=== PATIENT | male | born 1950 | race Caucasian/White ===

== ENCOUNTER 2017-10-21 18:28 | Inpatient (IN) | payer OTHER ==
[~2017-10-21] VITALS: Ht 188 cm; Wt 103.2 kg
--- NOTE | 2017-10-21 18:57 | ED AMS/SEIZURE/WEAK/DIZZY ---
History of Present Illness General Chief Complaint: Fever Stated Complaint: FEVER, CONFUSION, SEEN HERE 10/19 FOR SAME Source: patient, family, old records Exam Limitations: no limitations Vital Signs & Intake/Output Vital Signs & Intake/Output Vital Signs Date Time Temp Pulse Resp B/P B/P Pulse O2 O2 Flow FiO2 Mean Ox Delivery Rate 10/21 2112 98.7 90 18 115/79 93 Room Air 10/21 1957 98.9 93 18 114/56 94 Room Air 10/22 1947 Room Air 10/22 1831 102.7 113 15 139/68 93 Room Air Room Air Allergies Coded Allergies: No Known Allergies (10/21/17) Reconcile Medications Allopurinol 300 MG TABLET 1 TAB PO DAILY GOUT (Reported) Amitriptyline HCl 50 MG TABLET 1 TAB PO QHS SLEEP (Reported) Atenolol 100 MG TABLET 1 TAB PO DAILY BP (Reported) Hydroxychloroquine Sulfate 200 MG TABLET 1 TAB PO BID RA (Reported) Prednisone 5 MG TABLET 1 TAB PO BID RA (Reported) Sildenafil Citrate (Viagra) 100 MG TABLET 1 TAB PO PRN ED (Reported) 1 hour before sexual activity Triage Note: PT TO ED FOR C/C OF SUDDEN ONSET OF FEVER TODAY WITH CONFUSION. PT SEEN AND EVALUATED FOR SAME ON THURSDAY. PER , PT STARTED WITH FEVERS AGAIN AT HOME TODAY AROUND THE AFTERNOON. PT A/O X 3 BUT THINKS IT'S NOVEMBER. TEMP 102.7 IN TRIAGE. PT'S MEDICATED WITH "2 MOTRIN AND 2 TYLENOL AROUND 5:30 JUST BEFORE WE CAME." TAKEN TO ROOM 17 FOR EVAL. Triage Nurses Notes Reviewed? yes Onset: Abrupt Duration: day(s): (1), constant Timing: recent history Injury Environment: home Severity: moderate, severe Severity Numbers: 8 No Modifying Factors: none Associated Symptoms: denies HPI: 66-year-old male history of hypertension renal cancer status post nephrectomy presents the ER for evaluation after he redeveloped fevers at home today. He was seen in this ER for the same 2 days ago associated with altered mental status when he was found in the driveway with a thermometer in his mouth. He had an unremarkable workup performed and was sent home. He was doing well area and his states that she came home today and the patient was asleep in the chair when she woke him up he states he didn't do anything today however she knows that he went to the Social Security office today. She also states that he said it was November. On arrival in my evaluation he is alert and oriented 3 no recent head trauma he took Tylenol Motrin prior to arrival. There's been no cough. No abdominal pain shortness of breath sore throat no rhinorrhea sick contacts urinary complaints No recent tick or insect bite that is known (Ulises Dunlap) Past History Travel History Traveled to [place] past 21 day No Medical History Any Pertinent Medical History? see below for history Cardiovascular: hypertension Musculoskeletal: rheumatoid arthritis Cancer(s): RENAL CANCER Surgical History Surgical History: nephrectomy Psychosocial History What is your primary language Bengali Tobacco Use: Never used ETOH Use: occasional use Illicit Drug Use: denies illicit drug use Family History Hx Contributory? No (Ulises Dunlap) Review of Systems Review of Systems Constitutional: Reports: see HPI, chills, fever. Comments Review of systems: See HPI, All other systems negative. Constitutional, chills fever, no malaise no weight loss HEENT: no sore throat no congestion, no ear pain Cardiovascular: No chest pain , no palpitation Skin: no rashes, no change in skin Respiratory: No dyspnea no cough no sputum no hemoptysis GI: No nausea no vomiting, no diarrhea, no bloating/constipation : No dysuria No hematuria, no frequency Muscle skeletal: No joint pain, no back pain, no neck pain, Neurologic: , no headache Heme/endocrine: No bruising Immunology: No lymphadenopathy (Ulises Dunlap) Physical Exam Physical Exam General Appearance: well developed/nourished, no apparent distress, alert, awake , comfortable Comments: Well-developed well-nourished person in no acute distress HEENT: Normal EENT exam; PERRL, EOMI, HEAD is atraumatic. moist mucous membranes. Neck: Supple, no lymphadenopathy, normal range of motion without pain or tenderness Back: Nontender, no CVA tenderness. Full range of motion Cardiovascular: Regular rate and rhythms no murmurs rubs or gallops, normal JVP Respiratory: Chest nontender.There were no bony deformities, no asymmetry. No respiratory distress. Patient speaking in full complete sentences. Breath sounds clear to auscultation bilaterally: NO W/R/R Abdomen: Soft, nontender nondistended, no appreciable organomegaly. Normal bowel sounds. No rebound/guarding, No appreciable enlargement of the abdominal aorta, No ascites. Extremity: No edema, full range of motion of extremities, normal and equal pulses bilaterally, 5 out of 5 strength noted to bilateral upper and lower extremities Neuro: Alert oriented x3, motor sensory normal, cranial nerves II through XII grossly intact. There were no obvious focal neurologic abnormalities. Skin: No appreciable rash on exposed skin, skin is warm and dry. Psych: Mood and affect is normal, memory and judgment is normal. Core Measures ACS in differential dx? Yes CVA/TIA Diagnosis No Sepsis Present: No Sepsis Focused Exam Completed? No (Bladimir SCALES,Ulises) Progress Differential Diagnosis: arrythmia, anemia, benign positional vertigo, dehydration, encephalitis, GI bleed, hypoglycemia, pneumonia, UTI/pyelo, tick born illness Plan of Care: Orders Procedure Date/time Status Regular Diet 10/22 B Active CBC WITHOUT DIFFERENTIAL 10/22 06 Active BASIC ELECTROLYTES PLUS BUN&CR 10/22 599 Active Pathway - chart 10/21 2205 Active House Staff 10/21 2205 Active SPECIMEN TO BE OBTAINED 10/21 2205 Active STREP PNEUMO URINARY ANTIGEN 10/21 2205 Active LEGIONELLA URINARY ANTIGEN 10/21 2205 Active URINALYSIS 10/21 2205 Active Code Status 10/21 2205 Active Patient Data 10/22 2043 Active EKG 10/22 2031 Active OXYGEN SETUP (GEN) 10/22 2003 Active Saline Lock 10/22 2003 Active Admit to inpatient 10/22 2003 Active Vital Signs 10/22 2003 Active Activity/Ambulation 10/22 2003 Active Code Status 10/22 2003 Complete Intake & Output 10/21 1947 Active LACTIC ACID 10/21 1914 Complete BLOOD CULTURE 10/21 1850 Active LYME TITRE 10/21 1850 Active TROPONIN LEVEL 10/21 184 Complete COMPREHENSIVE METABOLIC PANEL 10/21 184 Complete CBC WITHOUT DIFFERENTIAL 10/21 1848 Complete Lab Add-on Test 10/21 UNK Active VTE Mechanical Prophylaxis 10/21 UNK Active Vital Signs 10/21 UNK Active Intake & Output 10/21 UNK Active Current Medications Sig/Keri Start time Last Medication Dose Stop Time Status Admin Amitriptyline HCl 50 MG QPM 10/22 2100 AC (Elavil 50 MG Tablet) Prednisone 5 MG BID 10/22 0900 AC Heparin Sodium 5,000 UNIT Q8 10/22 0600 AC (Porcine) Acetaminophen 650 MG Q8P PRN 10/21 2214 AC (Tylenol) Sodium Chloride 1,000 ML .Q10H 10/21 2214 AC (Normal Saline 0.9%) Laboratory Tests 10/21/172213: Lactic Acid Cancelled 10/21/172148: Lactic Acid Cancelled 10/21/171936: Lactic Acid 1.5 10/21/171851: Anion Gap 13, Estimated GFR > 60, BUN/Creatinine Ratio 16.0, Glucose 125 H, Calcium 8.5, Total Bilirubin 0.4, AST 32, ALT 47, Alkaline Phosphatase 47, Troponin I < 0.01, Total Protein 5.6 L, Albumin 3.5, Globulin 2.1, Albumin/ Globulin Ratio 1.7, Lyme Disease Antibody Pending 10/21/171850: CBC w Diff MAN DIFF ORDERED, RBC 4.86, MCV 84.5, MCH 29.4, MCHC 34.8, RDW 15.9 H, MPV 7.6, Gran % 84.0 H, Lymphocytes % 11.0 L, Monocytes % 4.9, Eosinophils % 0, Basophils % 0.1, Absolute Granulocytes 4.3, Segmented Neutrophils 71, Band Neutrophils 14 H, Absolute Lymphocytes 0.6 L, Lymphocytes 11 L, Monocytes 4, Absolute Monocytes 0.2, Absolute Eosinophils 0, Absolute Basophils 0, Platelet Estimate ADEQUATE, Normocytic RBCs VERIFIED, Normochromic RBCs VERIFIED Microbiology 10/21 2205 URINE ROUT: Legionella Antigen - ORD 10/21 2205 URINE ROUT: Streptococcus pneumoniae Antigen (M - ORD 10/21 1950 BLOOD: Blood Culture - RECD 10/21 1936 BLOOD: Blood Culture - RECD Old records from 2 days ago including a patient CAT scan of the head chest x- ray urinalysis blood cultures and labs were reviewed patient is alert oriented 3 he just took Tylenol Motrin prior to arrival IV fluids ordered CAT scans ordered. Case discussed with Dr. Arreaga agrees with plan Diagnostic Imaging: Viewed by Me: CT Scan. Discussed w/RAD: CT Scan. Initial ED EKG: normal intervals, normal p-waves, normal QRS complex, normal sinus rhythm (Ulises Dunlap) Departure Departure Time of Disposition: 2040 Disposition: STILL A PATIENT Condition: Stable Clinical Impression Primary Impression: Pneumonia Referrals: Awad Krystian YOUNG (PCP/Family) Departure Forms: Customer Survey General Discharge Information Admission Note Spoke With: Marcel Howard MD Documentation of Exam: Documentation of any treatments & extenuating circumstances including Concerns Regarding Discharge (functional status, medication knowledge or non-compliance, living conditions, etc.) that warrant an admission rather than observation: [IV antibiotics trend labs cultures premature discharge medically harmful ] (Bladimir SCALES,Ulises) PA/HEALTH INFORMATICS SPECIALIST Co-Sign Statement Statement: ED Attending supervision documentation- x I saw and evaluated the patient. I have also reviewed all the pertinent lab results and diagnostic results. I agree with the findings and the plan of care as documented in the PA's/HEALTH INFORMATICS SPECIALIST's documentation. Fever, confusion with pneumonia on CT chest, PMHx renal cell ca [] I have reviewed the ED Record and agree with the PA's/HEALTH INFORMATICS SPECIALIST's documentation. [] Additions or exceptions (if any) to the PAs/HEALTH INFORMATICS SPECIALIST's note and plan are summarized below: [] (Jace YOUNG,Frank)
[2017-10-21 19:39] LABS: ABSOLUTE BASOPHIL COUNT 0 /CUMM (0.0-0.2); ABSOLUTE EOSINOPHIL COUNT 0 /CUMM (0.0-0.7); ABSOLUTE GRANULOCYTE CT 4.3 /CUMM (1.4-6.5); ABSOLUTE LYMPH COUNT 0.6 /CUMM (1.2-3.4); ABSOLUTE MONOCYTE COUNT 0.2 /CUMM (0.10-0.60); BASOPHIL % 0.1 % (0.0-2.0); EOSINOPHIL % 0 % (0-5); MEAN CORPUSCULAR HGB 29.4 PG (27.0-31.0); MEAN CORPUSCULAR HGB CONC 34.8 G/DL (33.0-37.0); MEAN CORPUSCULAR VOLUME 84.5 FL (80.0-94.0); MEAN PLATELET VOLUME 7.6 FL (7.4-10.4); PLATELET COUNT 136 /CUMM (130-400); RBC DISTRIBUTION WIDTH 15.9 % (11.5-14.5); RED BLOOD CELL CT 4.86 /CUMM (4.70-6.10); WHITE BLOOD CELL COUNT 5.1 /CUMM (4.8-10.8)
--- NOTE | 2017-10-21 20:00 | CT SCAN REPORT ---
EXAMINATION: CT SCAN OF THE CHEST WITHOUT CONTRAST CT ABDOMEN AND PELVIS WITHOUT CONTRAST CLINICAL INFORMATION: Fever altered mental status. Assess for pneumonia pathology. COMPARISON: Chest x-ray 10/19/2017. CT scan of the abdomen and pelvis 10/24/2009. TECHNIQUE: Multidetector volumetric imaging was performed from the superior aspect of the liver through the pubic symphysis. Sagittal and coronal reformatted images were obtained on the technologist's workstation. DLP: 763.79 mGy-cm FINDINGS: CHEST: LUNGS: The lung marina are well-expanded bilaterally. There is a small area tree-in-bud opacities laterally in the right upper lobe. There are calcifications in the right upper lobe laterally measuring 0.8 and 0.3 cm (image [id number]), consistent with granulomata. There is a 0.4 cm subpleural nodule in the posterior right upper lobe laterally (image [id number]). There are multiple punctate small calcifications in the right middle and lower lobes consistent with granulomata. There are moderate areas of atelectasis at the bases bilaterally. There may be a small amount of consolidation at the left base. MEDIASTINUM: There are extensive calcifications in the paratracheal and precarinal regions as well as in the right hilum and right infrahilar regions, consistent with calcified lymph nodes. The heart is normal in size. There is no pericardial effusion. The airways are patent. The thyroid gland appears normal. There are atheromatous calcifications of the aorta. PERICARDIUM/PLEURA: There is no significant effusion. No pleural calcifications, masses or thickening. CHEST WALL/AXILLA: There are reason centered axillary lymph nodes bilaterally. There are no chest wall masses. ABDOMEN/PELVIS: LIVER, GALLBLADDER, BILIARY TREE: The liver is normal in size, shape, and attenuation. No focal hepatic lesion or biliary ductal dilatation is present. The gallbladder is unremarkable with no evidence of radiopaque gallstones, gallbladder wall thickening, or pericholecystic inflammatory changes. PANCREAS: Unremarkable. SPLEEN: The spleen is slightly prominent. There are multiple calcifications within the spleen, consistent with granulomata. ADRENAL GLANDS: The adrenal glands are not enlarged. KIDNEYS AND URETERS: There has been a left nephrectomy. This was demonstrated on the prior study. No renal bed masses are demonstrated. The right kidney is slightly prominent measuring 12 cm craniocaudally. It has normal contour. There is no hydronephrosis or hydroureter. There is a nonobstructive 2 mm calculus toward the lower pole. There is no perinephric stranding. BLADDER: The urinary bladder is partially distended. GASTROINTESTINAL TRACT: The stomach and small bowel loops are unremarkable. The appendix is normal. There is moderate stool within the large bowel. There is no evidence of obstruction or inflammation. ABDOMINAL WALL: There is atrophy of the left rectus abdominis muscle,. There are no large inguinal or umbilical hernias. LYMPH NODES: There is no abdominal pelvic lymphadenopathy. There are small retroperitoneal lymph nodes. VASCULAR: There are atheromatous calcifications of the aorta and its branches. There is a 3.6 cm aneurysm of the infrarenal abdominal aorta just proximal to its bifurcation. PELVIC VISCERA: The prostate gland is not enlarged. No free fluid is seen in the pelvis. OSSEOUS STRUCTURES: There is a grade 1 anterolisthesis of L5 on S1 secondary to bilateral L5 partes interarticulares defects. There are spondylitic changes in the thoracic spine. There are degenerative changes in the bilateral sacroiliac joints. There are no acute osseous findings. There are bone islands in the left iliac bone. There are no suspicious lytic foci. IMPRESSION: 1. There is bibasilar atelectasis, with possible consolidation at the left base. There is a small area of tree in bud opacification in the right upper lobe. There are multiple calcified granulomata in the right lung. 2. There are calcifications in the mediastinum and right hilum, as well as within the spleen, consistent with multiple granulomata. 3. The patient is status post left nephrectomy. No masses are demonstrated and there is no lymphadenopathy. There is a nonobstructive right renal calculus. 4. There is a 3.6 cm infrarenal abdominal aortic aneurysm.
--- NOTE | 2017-10-21 20:55 | History & Physical ---
Kirstin Godinez 10/21/172046: General Information and HPI MD Statement: I have seen and personally examined CORNELIUS HEDRICK and documented this H&P. The patient is a 66 year old M who presented with a patient stated chief complaint of 0[FEVER]. Source of Information: patient, old records Exam Limitations: no limitations History of Present Illness: Mr. Hedrick is a 66yo M w/ PMH of hypertension, renal cancer status post nephrectomy, rheumatoid arthritis, with recent quickly ER visit about 2 days ago , with similar symptoms of confusion starting Thursday, that per , patient forgot to turn off the grill (that he always remembered). However patient went to work on Thursday night and returned Thursday morning, and was texting the saying "he was feeling cold", and the next thing the son found him with the from of the and then called for ambulance for work and he was brought in to the ER with EMS T-max 103. However patient was not being hospitalized. Patient symptoms started around Thursday with some confusion that he forgot to turn off the grill (that he always remember). Thursday morning he was back from work and texted the saying "feeling cold". Next thing son found him bit the themometer and then called ambulance from work and he was BIBA to [facility], with EMS temp 103F, tachycardia, and altered mental status. The patient underwent head CT and was found normal. Patient received 2 L for later, and had car on the mentation was completely normal examination. Patient was then sent home. However, last night he was shivering and resolved in the morning prior to this admission. Today the came back from work and found that the patient was asleep in the chair, and when the woke the patient up, the patient stated that he did not do anything today, however the noted that the patient went to the Social Security office today. Patient also was disoriented to the month of the year and said now was November. Therefore patient's brought the patient in again today with the ER for further evaluation. Patient saw Dr. Hogue 2 weeks ago for follow-up of his rheumatoid arthritis was unremarkable outcomes. Patient had rheumatoid arthritis for 30 years, and always been on hydroxychloroquine, and now any other meds. Patient was doing okay with rheumatoid arthritis with some flareups once in a while. Patient had gout for 10 years and is taking allopurinol and current moment. Patient's last eye check was normal, and will have a follow-up appointment soon. Patient saw Dr. Dick Hickman in 1996 for left neprhonectomy. Never received chemo/radiation. No recent travel except previous service deployments in [facility] and [facility]. During our clinical interaction, patient denied fever/lightheadedness/ diaphoresis/night sweat/weight change/cough/SOB/Chest Pain/Palpitation/Abdominal pain/bowel movement or urinary abnormality, or other skin/musculoskeletal/ neurological/mood disorders, or dietary/appetite change. -Smoking: former smoker of 2-3 cigs/d x 40yrs, quitted 2 yrs ago. -Alcohol: Social -Rec Drugs: Never -Being treated for Lyme disease x 2 yrs ago. Allergies/Medications Allergies: Coded Allergies: No Known Allergies (10/21/17) Home Med list Allopurinol 300 MG TABLET 1 TAB PO DAILY GOUT (Reported) Amitriptyline HCl 50 MG TABLET 1 TAB PO QHS SLEEP (Reported) Atenolol 100 MG TABLET 1 TAB PO DAILY BP (Reported) Hydroxychloroquine Sulfate 200 MG TABLET 1 TAB PO BID RA (Reported) Prednisone 5 MG TABLET 1 TAB PO BID RA (Reported) Sildenafil Citrate (Viagra) 100 MG TABLET 1 TAB PO PRN ED (Reported) 1 hour before sexual activity Past History Travel History Traveled to [place] past 21 day No Medical History Cardiovascular: hypertension Musculoskeletal: rheumatoid arthritis Cancer(s): RENAL CANCER Surgical History Surgical History: nephrectomy Past Family/Social History Psychosocial History ETOH Use: occasional use Illicit Drug Use: denies illicit drug use Review of Systems Review of Systems Constitutional: Reports: see HPI. Exam & Diagnostic Data Last 24 Hrs of Vital Signs/I&O Vital Signs Date Time Temp Pulse Resp B/P B/P Pulse O2 O2 Flow FiO2 Mean Ox Delivery Rate 10/21 1957 98.9 93 18 114/56 94 Room Air 10/22 1947 Room Air 10/22 1831 102.7 113 15 139/68 93 Room Air Room Air Physical Exam General Appearance Alert, Oriented X3, Cooperative, No Acute Distress Skin No Rashes, No Breakdown, No Significant Lesion Skin Temp/Moisture Exam: Warm/Dry Sepsis Skin Exam (color): Normal for Ethnicity HEENT Atraumatic, PERRLA Neck Supple, No JVD Lymphatic Axillary nl, Cervical nl Cardiovascular Regular Rate, Normal S1, Normal S2 Lungs Normal Air Movement, Left lung base with decreased breath sound Abdomen Normal Bowel Sounds, Soft, No Tenderness Neurological Normal Speech, Strength at 5/5 X4 Ext, Sensation Intact Extremities No Edema, Normal Pulses, No Tenderness/Swelling Last 24 Hrs of Labs/Wiliam: Laboratory Tests 10/21/171936: Lactic Acid 1.5 10/21/171851: Anion Gap 13, Estimated GFR > 60, BUN/Creatinine Ratio 16.0, Glucose 125 H, Calcium 8.5, Total Bilirubin 0.4, AST 32, ALT 47, Alkaline Phosphatase 47, Troponin I < 0.01, Total Protein 5.6 L, Albumin 3.5, Globulin 2.1, Albumin/ Globulin Ratio 1.7, Lyme Disease Antibody Pending 10/21/171850: CBC w Diff MAN DIFF ORDERED, RBC 4.86, MCV 84.5, MCH 29.4, MCHC 34.8, RDW 15.9 H, MPV 7.6, Gran % 84.0 H, Lymphocytes % 11.0 L, Monocytes % 4.9, Eosinophils % 0, Basophils % 0.1, Absolute Granulocytes 4.3, Segmented Neutrophils 71, Band Neutrophils 14 H, Absolute Lymphocytes 0.6 L, Lymphocytes 11 L, Monocytes 4, Absolute Monocytes 0.2, Absolute Eosinophils 0, Absolute Basophils 0, Platelet Estimate ADEQUATE, Normocytic RBCs VERIFIED, Normochromic RBCs VERIFIED Microbiology 10/21 1950 BLOOD: Blood Culture - RECD 10/21 1936 BLOOD: Blood Culture - RECD Assessment/Plan Assessment: On admission, Vitals: T-max 102.7 -> 98.9, pulse 93, respirations 18, BP 1 1 4/56, 94% on room air -CBC: No leukocytosis, granulocytes 84%, bandemia -BMP: Unremarkable -Chest CT: 1. There is bibasilar atelectasis, with possible consolidation at the left base. There is a small area of tree in bud opacification in the right upper lobe. There are multiple calcified granulomata in the right lung. 2. There are calcifications in the mediastinum and right hilum, as well as within the spleen, consistent with multiple granulomata. 3. The patient is status post left nephrectomy. No masses are demonstrated and there is no lymphadenopathy. There is a nonobstructive right renal calculus. 4. There is a 3.6 cm infrarenal abdominal aortic aneurysm. -EKG: NSR w/o significant ST-T abnormalities. -Interventions in ER: Ceftriaxone/azithromycin 1 Problem list & Assessment: #Sepsis 2/2 community-acquired pneumonia #Multiple granulomatous lesions on chest CT: DDX including sarcoidosis/ rheumatoid arthritis related lung nodules/other unclear etiologies #Infrarenal AAA #PMH of hypertension, status post nephrectomy, rheumatoid arthritis Hospital Course: - Admit to general medicine floor will hold Droxia chloroquine for now. tachycardia had resolved. nodules per CT findings, and for possible outpatient follow-up. DVT prophylaxis Heparin + ALPS Regular Diet Full Code As Ranked By This Provider Problem List: 1. Pneumonia 2. Fever Core Measures/Misc (02/15) Acute Coronary Syndrome ACS Diagnosis: No Congestive Heart Failure Congestive Heart Failure Diagnosis No Cerebrovascular Accident CVA/TIA Diagnosis: No VTE (View Protocol) VTE Risk Factors Age>40 No Mechanical VTE Prophylaxis d/t N/A MechProphylax Ordered No VTE Pharm Prophylaxis d/t NA PharmProphylax ordered Sepsis (View protocol) Sepsis Present: Yes If YES complete Sepsis Event Note If YES complete Sepsis Event Note Tereza Peter 10/21/172101: Core Measures/Misc (02/15) Sepsis (View protocol) If YES complete Sepsis Event Note If YES complete Sepsis Event Note Resident Review Statement Resident Statement: examined this patient, discussed with software engineer intern, agreed with software engineer intern Other Findings: Mr Hedrick is a 66 -year-old gentleman with a past medical history of hypertension, RCC s/p nephrectomy ([facility] dx'ed 1996), RA(on Hydroxychloroquine+Prednisone), Gout(on Alloprurinol) was brought to the ER with a chief concern of fever, altered mental status x 3 days. Symptoms started 3 days ago, after he did yard work in the a.m, and was found to be slightly altered at the time. Two days ago, he was found to have fever associated with chills and was brought to the ER, and was discharged home after evaluation. He continued to have fever associated w/ chills with recorded temperatures 102-103, and was brought back to the ER for evaluation. He did not have any recollection of events when he was altered. Gives a h/o being drafted when he was young and served in [employer]. No h/o of exposure to asbestos, silica. Smoking h/o of 30 pk h/o quit 2 yrs. no recent foreign travel. No history of exposure to tuberculosis. No dyspnea, palpitations. Reported non productive cough in the last two days. No abdominal pain, dysurea. No pedal edema, no dysurea. He has been following up with Dr. Hogue for the management of rheumatoid arthritis, and has been on hydroxychloroquine (uptodate on eye exams). He was never been treated with any biologicals. Recently started on prednisone daily. He gives a remote h/o of lyme disease and was tx'ed w/ Doxy. Did not receive pnueomovax or prevnar so far. Vitals at the time of admission-temperature 102.7, pulse rate 113, respiration 15, blood pressure 139/68, pulse ox 93% on room air. General Exam: AAOx3, No acute distress, Skin: No rashes, no breakdown;HEENT: PERRLA, EOMI;Neck: Supple, No JVD; No cervical lymphadenopathy;CVS: Reg Rate, Normal S1,S2, No MGR;Resp: Normal air entry, rales + on RLL;Abdomen: Soft, No tenderness, Normal Bowel Sounds;Neuro: Normal Speech, Strength 5/5 b/l x 4 extremities, Sensation intact, CN III-XII NL, Reflexes 2+;Extremities: No cyanosis, no pedal edema, nodules on the PIP joints. No rash, no erythema nodosum. WBC 5.1 (granulocytes 84% with 11 band neutrophils), hemoglobin 14.3, platelets 136. Sodium 137, potassium 3.6, chloride 102, anion gap 13. Renal function-BUN 16, creatinine 1.0, lactic acid 1.5, liver chemistries-AST 32, ALT 47, Lyme disease antibody ordered by ER-pending. Calcium 8.5. Total protein 5.6, albumin 3.5. Chest x-ray 10/19/2017-Linear atelectasis or scarring at the left lung base. Lung hyperinflation. No consolidations. Chest CT 10/21/2017- 1. There is bibasilar atelectasis, with possible consolidation at the left base. There is a small area of tree in bud opacification in the right upper lobe. There are multiple calcified granulomata in the right lung. 2. There are calcifications in the mediastinum and right hilum, as well as within the spleen, consistent with multiple granulomata. 3. The patient is status post left nephrectomy. No masses are demonstrated and there is no lymphadenopathy. There is a nonobstructive right renal calculus. 4. There is a 3.6 cm infrarenal abdominal aortic aneurysm. Problem list- #1 community-acquired pneumonia #2 rheumatoid arthritis #3 multiple granulomatous lesions-lymphatic: mediastinum, right hilum, spleen, likely Sarcoidosis or Loefgrens, sarcoidosis like secondary to renal cell carcinoma. #4 infrarenal abdominal aortic aneurysm #5 hypertension #6 sepsis #7 left shift-granulocytosis. Plan: The patient is admitted to general medicine service for further management of community-acquired pneumonia. Etiology of his pneumonia is likely community- acquired, but being on hydroxychloroquine and prednisone can make him more predisposed to bacteremia ( has not receieved his pneumovax/prevnar ). He also has multiple granulomatous lesions, in the lymphatic system with broad differentials primarily sarcoidosis, renal cell carcinoma induced granulomatous disease ( [facility] Diagn Pathol.~2016;31:62-65 ) rheumatoid arthritis, Loefgrens. - Antibiotics-ceftriaxone and azithromycin for the treatment of community- acquired pneumonia. The patient has hypotension, or continue to have fever despite being on antibiotics, the coverage could be broadened. Continue fluids- normal saline at 100 mL an hour. -Follow his lower respiratory cultures, blood cultures, urine strep+ Legionella. -Hold plaquenil, but Prednisone could be continued. If the pt has hypotension, stress dose of steroids could be considered. -Hold anti-hypertensives at this time. If the BP starts to go up, could be started to avoid any re-bound tachycardia. -Would consider checking JESSICA levels. Consider pulm consult, if he needs to be treated for this granulomatous disease w/ steroids. Would consider checking HIV. -Restart Plaquenil after resolution of pneumonia. Housekeeping: DVT prophylaxis-subcutaneous heparin CODE STATUS-full code Diet-regular diet Tylenol when necessary for fever Medications reconciled. Consults: Pulmonology, if the a.m. team needs it. Lee YOUNG, [facility] 10/21/17 2320: Core Measures/Misc (02/15) Sepsis (View protocol) If YES complete Sepsis Event Note If YES complete Sepsis Event Note Attending MD Review Statement Attending Statement Attending MD Statement: examined this patient, discuss w/resident/PA/SHEET METAL SHOP FOREMAN, agreed w/resident/PA/SHEET METAL SHOP FOREMAN, discussed with family, reviewed images, amended to note Attending Assessment/Plan: 66 yo M with h/o HTN, Renal cell carcinoma s/p left nephrectomy, RA on prednisone and plaquenil, gout, previous Lyme's disease, who was seen in the ER 2 days prior for fever and confusion - after daughter found the patient standing in the driveway confused with a thermometer in his mouth. ER work up was essentially negative and patient was discharged home after his fever defervesced and his mentation was back to baseline. Today, noticed he was asleep in his chair and he reported that he did nothing all day despite the fact that the knew that he had been to [employer] office in the morning hours. He c/o nonproductive cough+. Patient did do some yard work 3 days ago, but no noticeable tick/insect bite or rash. Patient worked for [employer] and has served in [employer]. No h/o of exposure to asbestos, silica. Smoking h/o of 30 pk h/o quit 2 yrs. no recent foreign travel. No history of exposure to tuberculosis. Vitals: Tmax 102.7, HR 90-110's, BP 112/63, sats 93% RA. Exam: AAO, in no distress, Chest left basilar rhonchi+, Heart S1S2 regular, tachycardic. Labs: no leukocytosis, bands 14, glucose 125, lactic acid 1.5, trop negative, LFTs normal. Lyme antibody pending. CT CAP: bibasilar atelectasis with possible consolidation at left lung base. Small area of tree in bud opacification in RUL, multiple calcified granulomata in right lung. Calcifications in mediastinum and right hilum, and spleen multiple granulomata. Renal stones, and infrarenal abdominal aortic aneurysm. CXR: (10/19): linear atelectasis or scarring left lung base. EKG: sinus rhythm, Qtc 426, no acute changes. Assessment and plan: 1. Sepsis (bandemia, fever, tachycardia) 2. Left basilar pneumonia -community acquired pneumonia 3. Multiple calcified granulomata of right lung ?rheumatoid lung ?sarcoid 4. Renal cell carcinoma s/p left nephrectomy 5. Rheumatoid arthritis on prednisone and plaquenil - Admit to General medicine - Panculture, urine legionella/ strep Ag - TRC nebs - IV ceftriaxone and azithro - IV fluids, trend lactic acid - Pulm consult with outpatient follow up - Stress dose steroids if patient becomes hypotensive - Resume prednisone - Hold plaquenil - Add mucinex - Will use broad spectrum antibiotics if patient continues to spike fever - Resume amitriptyline, atenolol and allopurinol in AM DVT ppx Lovenox. Full code.
[2017-10-21] MEDS ORDERED: ATENOLOL100 M1 PO (21:19)
[2017-10-21] MEDS ORDERED: HYDROXYCHLOROQ200 M2 PO (21:19)
[2017-10-21] MEDS ORDERED: ALLOPURINOL300 M1 PO (21:19)
[2017-10-21] MEDS ORDERED: PREDNISONE5 M1 PO (21:20)
[2017-10-21] MEDS ORDERED: AMITRIPTYLINE H50 M2 PO (21:20)
[2017-10-21] MEDS ORDERED: MELOXICAM15 M1 PO (21:20)
[2017-10-21] MEDS ORDERED: VIAGRA100 M1 PO (21:21)
[2017-10-21 22:15] VITALS: BP 112/63
--- NOTE | 2017-10-21 23:20 | Admission Certification ---
Admission Certification Certification Statement - As attending physician, I certify that at the time of - admission, based on clinical presentation, severity of - symptoms, need for further diagnostic testing and - therapeutic interventions, and risk of adverse outcomes - without in-hospital treatment, in my clinical assessment, - this patient requires an acute hospital stay for a minimum - of two nights or longer. I have also considered psychsocial - factors such as support system, advanced age, financial - issues, cognitive issues, and failed out-patient treatments, - past re-admission history, safety of patient, and lack of - compliance as applicable. Specific rationale supporting this admission is: Sepsis, community acquired pneumonia.
[2017-10-22 06:43] VITALS: BP 114/80
[2017-10-22 08:36] LABS: ABSOLUTE BASOPHIL COUNT 0 /CUMM (0.0-0.2); ABSOLUTE EOSINOPHIL COUNT 0 /CUMM (0.0-0.7); ABSOLUTE GRANULOCYTE CT 2.6 /CUMM (1.4-6.5); ABSOLUTE LYMPH COUNT 0.7 /CUMM (1.2-3.4); ABSOLUTE MONOCYTE COUNT 0.3 /CUMM (0.10-0.60); BASOPHIL % 0.2 % (0.0-2.0); EOSINOPHIL % 0.2 % (0-5); GRANULOCYTE % 73.2 % (42.2-75.2); HEMATOCRIT 38.1 % (42-52); MEAN CORPUSCULAR HGB 29.3 PG (27.0-31.0); MEAN CORPUSCULAR HGB CONC 34.8 G/DL (33.0-37.0); MEAN CORPUSCULAR VOLUME 84.1 FL (80.0-94.0); MEAN PLATELET VOLUME 7.8 FL (7.4-10.4); PLATELET COUNT 106 /CUMM (130-400); RBC DISTRIBUTION WIDTH 16.5 % (11.5-14.5); RED BLOOD CELL CT 4.53 /CUMM (4.70-6.10); WHITE BLOOD CELL COUNT 3.5 /CUMM (4.8-10.8)
--- NOTE | 2017-10-22 13:24 | PN- Att Addend ---
Attending Addendum Attending Brief Note Patient seen and examined. Plan of care discussed with the medical team and the patient. Available lab work and radiology test reports were reviewed. Exam: General: Patient awake alert oriented without any distress CVS: S1 plus S2 without any murmur or gallops Chest: Few scattered crepitation without any wheeze. There is no respiratory distress. Abdomen: Soft non-tender, bowel sound present, no guarding or rebound MATERIAL ASSEMBLER: Awake alert oriented without any focal neuro deficit and follows commands appropriately Extremities: No edema; no clubbing or cyanosis noted Problem list & Assessment: * Sepsis 2/2 community-acquired pneumonia * Multiple granulomatous lesions on chest CT: DDX including sarcoidosis/ rheumatoid arthritis related lung nodules/other etiologies fungal infection such as histoplasmosis * Infrarenal AAA * PMH of hypertension, * status post nephrectomy, * rheumatoid arthritis Plan * Continue ceftriaxone and azithromycin * Await cultures reports * Lung nodules can be worked up as outpatient * Out of bed and ambulate * Check and to saturation Current Medications Sig/Keri Start time Last Medication Dose Route Stop Time Status Admin Acetaminophen 650 MG Q8P PRN 10/21 2214 AC 10/22 PO 0754 Amitriptyline HCl 50 MG QPM 10/22 2100 AC PO Atenolol 100 MG DAILY 10/22 0900 AC 10/22 PO 0833 Azithromycin 500 MG 2000 10/23 1999 AC Sodium Chloride 250 ML IV Azithromycin 500 MG ONCE ONE 10/21 2044 DC 10/21 Sodium Chloride 250 ML IV 10/210 Ceftriaxone Sodium 1,000 MG 2000 10/23 1999 AC IV Ceftriaxone Sodium 0 .STK-MED ONE 10/21 2046 DC .ROUTE Ceftriaxone Sodium 1,000 MG ONCE ONE 10/21 2044 DC 10/21 IV 10/21 Heparin Sodium 5,000 UNIT Q8 10/22 06 AC 10/22 (Porcine) SC 0602 Hydroxychloroquine 200 MG BID 10/22 1256 AC Sulfate PO Ketorolac 30 MG ONCE ONE 10/21 Tromethamine IV 10/21 Ketorolac 0 .STK-MED ONE 10/21 2009 DC Tromethamine .ROUTE Prednisone 5 MG BID 10/22 0900 AC 10/22 PO 0832 Sodium Chloride 1,000 ML .Q10H 10/21 2215 AC 10/22 IV 10/22 1814 1019 Sodium Chloride 1,000 ML BOLUS ONE 10/21 190 DC 10/21 IV 10/21 Laboratory Tests 10/22/17 0700: Anion Gap 10, Estimated GFR > 60, BUN/Creatinine Ratio 15.6, CBC w Diff MAN DIFF ORDERED, RBC 4.53 L, MCV 84.1, MCH 29.3, MCHC 34.8, RDW 16.5 H, MPV 7.8, Gran % 73.2, Lymphocytes % 19.2 L, Monocytes % 7.2, Eosinophils % 0.2, Basophils % 0.2, Absolute Granulocytes 2.6, Segmented Neutrophils 44, Band Neutrophils 28 H , Absolute Lymphocytes 0.7 L, Lymphocytes 20 L, Monocytes 7, Absolute Monocytes 0.3, Absolute Eosinophils 0, Basophils 1, Absolute Basophils 0, Platelet Estimate DECREASED, Anisocytosis 1+ 10/22/17 0423: Urine Color YEL, Urine Clarity CLEAR, Urine pH 6.0, Ur Specific [place] >= 1.030 , Urine Protein 30 H, Urine Ketones NEG, Urine Nitrite NEG, Urine Bilirubin NEG , Urine Urobilinogen 0.2, Ur Leukocyte Esterase NEG, Ur Microscopic SEDIMENT EXAMINED, Urine RBC 1-3, Urine WBC RARE, Urine Bacteria FEW H, Urine Hemoglobin NEG, Urine Glucose NEG 10/21/17 2214: Lactic Acid Cancelled 10/21/17 2149: Lactic Acid Cancelled 10/21/17 1937: Lactic Acid 1.5 10/21/171851: Anion Gap 13, Estimated GFR > 60, BUN/Creatinine Ratio 16.0, Glucose 125 H, Calcium 8.5, Total Bilirubin 0.4, AST 32, ALT 47, Alkaline Phosphatase 47, Troponin I < 0.01, Total Protein 5.6 L, Albumin 3.5, Globulin 2.1, Albumin/ Globulin Ratio 1.7, Lyme Disease Antibody 0.11 10/21/17 185: CBC w Diff MAN DIFF ORDERED, RBC 4.86, MCV 84.5, MCH 29.4, MCHC 34.8, RDW 15.9 H, MPV 7.6, Gran % 84.0 H, Lymphocytes % 11.0 L, Monocytes % 4.9, Eosinophils % 0, Basophils % 0.1, Absolute Granulocytes 4.3, Segmented Neutrophils 71, Band Neutrophils 14 H, Absolute Lymphocytes 0.6 L, Lymphocytes 11 L, Monocytes 4, Absolute Monocytes 0.2, Absolute Eosinophils 0, Absolute Basophils 0, Platelet Estimate ADEQUATE, Normocytic RBCs VERIFIED, Normochromic RBCs VERIFIED Microbiology 10/22 422 URINE ROUT: Legionella Antigen - COMP 10/22 422 URINE ROUT: Streptococcus pneumoniae Antigen (M - COMP 10/21 1950 BLOOD: Blood Culture - RECD 10/21 1936 BLOOD: Blood Culture - RECD Vital Signs Date Time Temp Pulse Resp B/P B/P Pulse O2 O2 Flow FiO2 Mean Ox Delivery Rate 10/22 0833 87 159/89 10/22 0754 4.0 10/22 642 98.3 79 20 114/80 96 Room Air 10/21 2214 98.6 84 18 112/63 94 Room Air 10/21 2214 94 Room Air 10/21 2112 98.7 90 18 115/79 93 Room Air 10/21 1957 98.9 93 18 114/56 94 Room Air 10/22 1947 Room Air 10/22 1831 102.7 113 15 139/68 93 Room Air Room Air Intake & Output 10/22 1600 10/22 0800 10/22 0000 Intake Total 1380 1000 Output Total Balance 1380 1000 Intake, IV 900 1000 Intake, Oral 480 0 Number 0 0 Bowel Movements Patient 228 lb Weight Weight Bed scale Measurement Method
[2017-10-22 14:39] VITALS: BP 165/94
--- NOTE | 2017-10-22 14:56 | PN- Housestaff ---
Subjective Follow-up For: confusion fever Subjective: Patient is alert and oriented 3 today. He notes that he has a headache, frontal. He has stable vitals. The patient denies any chest pain or shortness of breath. He denies cough. He denies any nausea or vomiting but does have fever and chills. The patient was noted to get up from his bed many times during the day, confused. Patient's , who is here most of the day, stated that this is not normal for her . Review of Systems Constitutional: Reports: chills, fever. EENTM: Reports: no symptoms. Cardiovascular: Reports: no symptoms. Respiratory: Reports: no symptoms. Gastrointestinal: Reports: no symptoms. Genitourinary: Reports: no symptoms. Musculoskeletal: Reports: no symptoms. Skin: Reports: no symptoms. Neurological/Psychological: Reports: confusion, headache. Hematologic/Endocrine: Reports: no symptoms. Objective Last 24 Hrs of Vital Signs/I&O Vital Signs Date Time Temp Pulse Resp B/P B/P Pulse O2 O2 Flow FiO2 Mean Ox Delivery Rate 10/22 1439 98.3 107 20 165/94 92 Room Air 10/22 1436 100.2 10/22 0853 0.0 10/22 0833 87 159/89 10/22 0754 4.0 10/22 0643 98.3 79 20 114/80 96 Room Air 10/21 2214 98.6 84 18 112/63 94 Room Air 10/21 2215 94 Room Air 10/21 2113 98.7 90 18 115/79 93 Room Air 10/21 1958 98.9 93 18 114/56 94 Room Air 10/21 1948 Room Air 10/21 1832 102.7 113 15 139/68 93 Room Air Room Air Intake & Output 10/22 1600 10/22 0800 10/22 0000 Intake Total 1300 1380 1000 Output Total Balance 1300 1380 1000 Intake, IV 177 820 0811 Intake, Oral 500 480 0 Number 0 0 Bowel Movements Patient 228 lb Weight Weight Bed scale Measurement Method Physical Exam General Appearance: Alert, Oriented X3, Cooperative, No Acute Distress, waxing and waning confusion, on interview this morning, was Aox3 Skin: No Rashes, No Breakdown, No Significant Lesion Skin Temp/Moisture Exam: Warm/Dry Sepsis Skin Exam (color): Normal for Ethnicity HEENT: Atraumatic, PERRLA, EOMI, Mucous Membr. moist/pink Cardiovascular: Regular Rate, Normal S1, Normal S2, No Murmurs Lungs: crackles at bilateral bases Abdomen: Normal Bowel Sounds, Soft, No Tenderness Neurological: Normal Gait, Normal Speech, Strength at 5/5 X4 Ext, Normal Tone, Sensation Intact, Cranial Nerves 3-12 NL Extremities: No Clubbing, No Cyanosis, No Edema, Normal Pulses, No Tenderness/ Swelling Vascular: Normal Pulses, Pulses Symmetrical Current Medications: Current Medications Sig/Keri Start time Last Medication Dose Route Stop Time Status Admin Acetaminophen 650 MG .STK-MED ONE 10/22 0753 DC PO 10/22 0754 Acetaminophen 650 MG Q8P PRN 10/21 2215 AC 10/22 PO 1436 Amitriptyline HCl 50 MG QPM 10/22 2100 AC PO Atenolol 100 MG DAILY 10/22 0900 AC 10/22 PO 0833 Azithromycin 500 MG 10/22 CAN Sodium Chloride 250 ML IV Azithromycin 500 MG ONCE ONE 10/21 2044 DC 10/21 Sodium Chloride 250 ML IV 10/21 Ceftriaxone Sodium 1,000 MG 2000 10/23 1999 CAN IV Ceftriaxone Sodium 0 .STK-MED ONE 10/21 2046 DC .ROUTE Ceftriaxone Sodium 1,000 MG ONCE ONE 10/21 2044 DC 10/21 IV 10/21 Doxycycline Hyclate 100 MG BID 10/22 2100 DC PO Doxycycline Hyclate 100 MG BID 10/22 1645 AC PO Heparin Sodium 5,000 UNIT Q8 10/22 0600 AC 10/22 (Porcine) SC 1436 Hydroxychloroquine 200 MG BID 10/22 1256 AC 10/22 Sulfate PO 1651 Ketorolac 30 MG ONCE ONE 10/21 2014 DC 10/21 Tromethamine IV 10/21 Ketorolac 0 .STK-MED ONE 10/21 2009 DC Tromethamine .ROUTE Patient Medication 1 ED ONE ONE 10/22 1545 DC Teaching ED 10/22 1546 Prednisone 5 MG BID 10/22 0900 AC 10/22 PO 0832 Sodium Chloride 1,000 ML .Q10H 10/21 2215 AC 10/22 IV 10/22 1814 1019 Sodium Chloride 1,000 ML BOLUS ONE 10/21 1900 DC 10/21 IV 10/21 1959 1945 Last 24 Hrs of Lab/Wiliam Results Last 24 Hrs of Labs/Mics: Laboratory Tests 10/22/17 0700: Anion Gap 10, Estimated GFR > 60, BUN/Creatinine Ratio 15.6, CBC w Diff MAN DIFF ORDERED, RBC 4.53 L, MCV 84.1, MCH 29.3, MCHC 34.8, RDW 16.5 H, MPV 7.8, Gran % 73.2, Lymphocytes % 19.2 L, Monocytes % 7.2, Eosinophils % 0.2, Basophils % 0.2, Absolute Granulocytes 2.6, Segmented Neutrophils 44, Band Neutrophils 28 H , Absolute Lymphocytes 0.7 L, Lymphocytes 20 L, Monocytes 7, Absolute Monocytes 0.3, Absolute Eosinophils 0, Basophils 1, Absolute Basophils 0, Platelet Estimate DECREASED, Anisocytosis 1+ 10/22/17 0423: Urine Color YEL, Urine Clarity CLEAR, Urine pH 6.0, Ur Specific [place] >= 1.030 , Urine Protein 30 H, Urine Ketones NEG, Urine Nitrite NEG, Urine Bilirubin NEG , Urine Urobilinogen 0.2, Ur Leukocyte Esterase NEG, Ur Microscopic SEDIMENT EXAMINED, Urine RBC 1-3, Urine WBC RARE, Urine Bacteria FEW H, Urine Hemoglobin NEG, Urine Glucose NEG 10/21/17 2214: Lactic Acid Cancelled 10/21/17 2149: Lactic Acid Cancelled 10/21/17 1937: Lactic Acid 1.5 10/21/17 1852: Anion Gap 13, Estimated GFR > 60, BUN/Creatinine Ratio 16.0, Glucose 125 H, Calcium 8.5, Total Bilirubin 0.4, AST 32, ALT 47, Alkaline Phosphatase 47, Troponin I < 0.01, Total Protein 5.6 L, Albumin 3.5, Globulin 2.1, Albumin/ Globulin Ratio 1.7, Lyme Disease Antibody 0.11 10/21/17 1851: CBC w Diff MAN DIFF ORDERED, RBC 4.86, MCV 84.5, MCH 29.4, MCHC 34.8, RDW 15.9 H, MPV 7.6, Gran % 84.0 H, Lymphocytes % 11.0 L, Monocytes % 4.9, Eosinophils % 0, Basophils % 0.1, Absolute Granulocytes 4.3, Segmented Neutrophils 71, Band Neutrophils 14 H, Absolute Lymphocytes 0.6 L, Lymphocytes 11 L, Monocytes 4, Absolute Monocytes 0.2, Absolute Eosinophils 0, Absolute Basophils 0, Platelet Estimate ADEQUATE, Normocytic RBCs VERIFIED, Normochromic RBCs VERIFIED Microbiology 10/22 422 URINE ROUT: Legionella Antigen - COMP 10/22 422 URINE ROUT: Streptococcus pneumoniae Antigen (M - COMP 10/21 1950 BLOOD: Blood Culture - RES 10/21 1936 BLOOD: Blood Culture - RES Assessment/Plan Assessment: Mr. Ornelas is a 66yo M w/ PMH of hypertension, renal cancer status post nephrectomy without chemotherapy/radiation, rheumatoid arthritis on prednisone and hydroxychloroquine, gout on allopurinol, that presented to the ER with confusion that began 5 days ago. He states that at the time it began, he was "very tired after doing yard work". Three days ago, the patient was BIBA to the ED for the same complaints, found to have fever to 103.5, tachycardia, and altered mental status. The patient underwent head CT and was found normal. Patient received 2 L fluids, found to have normal physical exam, and was sent home. The patient's stated that he never really got better and his confusion has increased since he was discharged from the ED. During this hospitalization, the patient is waxing and waning clear mentation. On interview today he was alert and oriented 3. She does have rheumatoid arthritis but his only symptom is joint pain and has been so for the entire time he has had the disease. He shouldn't does have a history of Lyme disease 2 years ago, treated successfully. On admission, Vitals: T-max 102.7 -> 98.9, pulse 93, respirations 18, BP 1 1 4/56, 94% on room air -CBC: No leukocytosis, granulocytes 84%, bandemia -BMP: Unremarkable -Chest CT: 1. There is bibasilar atelectasis, with possible consolidation at the left base. There is a small area of tree in bud opacification in the right upper lobe. There are multiple calcified granulomata in the right lung. 2. There are calcifications in the mediastinum and right hilum, as well as within the spleen, consistent with multiple granulomata. 3. The patient is status post left nephrectomy. No masses are demonstrated and there is no lymphadenopathy. There is a nonobstructive right renal calculus. 4. There is a 3.6 cm infrarenal abdominal aortic aneurysm. -EKG: NSR w/o significant ST-T abnormalities. -Interventions in ER: Ceftriaxone/azithromycin 1 Problem list & Assessment: #Sepsis 2/2 presumed community-acquired pneumonia. Patient meets criteria for sepsis. Continues to have waxing and waning confusion during the day. Appears to have defervesced earlier today and overnight. #Multiple granulomatous lesions on chest CT: DDX including sarcoidosis/ rheumatoid arthritis related lung nodules/other unclear etiologies. The patient notes no travel out of the [place] except to the [place] back 30 years ago. He has worked in [employer] for many years and does note that he could've had chemical exposure at work. He denies any weight loss. The patient has a remote history of smoking on and off for 20 years but quit about 20 years ago. #Infrarenal AAA #PMH of hypertension, status post nephrectomy, rheumatoid arthritis Plan noted to be tachypneic with a respiratory rate of 32, most likely secondary to his infection. the lab reported several neutrophils containing cytoplasmic structures, suggestive of Anaplasma, on his peripheral smear. We have switched ceftriaxone and azithromycin for doxycycline 100 mg twice a day and has put in anaplasma PCR. hydroxychloroquine 200 mg twice a day as this does not have an effect on the lung. tachycardia had resolved. , outpatient about his lung nodules for possible PFT and further workup. Of note, Dr. Hogue who follows him for rheumatoid arthritis had never seen these nodules, no workup done. -Lyme test negative. Patient did have history of Lyme in the past. DVT prophylaxis Heparin + ALPS Regular Diet Full Code Problem List: 1. Fever 2. Pneumonia Pain Ratin Pain Location: na Pain Goal: Remain pain free Pain Plan: prn Tomorrow's Labs & Rationales: bep cbc
--- NOTE | 2017-10-22 16:02 | Cons- Infect Disease ---
General Information and HPI Consulting Request Date of Consult: 10/22/17 Requested By: Lee YOUNG,Marcel Reason for Consult: Fever/intracellular morulae Source of Information: patient, family, old records History of Present Illness: This is a 66-year-old man with a history of hypertension, renal cancer, status post left nephrectomy, rheumatoid arthritis, maintained on prednisone and Plaquenil, and Lyme disease, seen in the emergency room 2 days prior to admission with fever and confusion, found to be febrile to 102.9, with a white blood cell count of 8000, a platelet count of 251,000, normal chemistries, a negative urinalysis, negative CT of the head and a chest x-ray negative for pneumonia, given a dose of Ceftriaxone and discharged on no antibiotics, admitted on October 21 after he was brought back to the emergency room because of recurrent fever and confusion. On admission he was febrile to 102.7. Laboratory data revealed a white blood cell count of 5000, with 71 segs and 14 bands, H&H 14 and 41, platelet count 136,000, BUN/creatinine 16 and 1.0, with normal liver enzymes. Urinalysis 1-3 RBC/rare WBCs. He was begun on Ceftriaxone and Azithromycin and appears to have defervesced overnight. This morning the lab reported several neutrophils containing cytoplasmic structures, suggestive of Anaplasma, on his peripheral smear. He has been intermittently confused since admission. At present he complains of a headache with no other complaints. Allergies/Medications Allergies: Coded Allergies: No Known Allergies (10/21/17) Home Med List: Allopurinol 300 MG TABLET 1 TAB PO DAILY GOUT (Reported) Amitriptyline HCl 50 MG TABLET 1 TAB PO QHS SLEEP (Reported) Atenolol 100 MG TABLET 1 TAB PO DAILY BP (Reported) Hydroxychloroquine Sulfate 200 MG TABLET 1 TAB PO BID RA (Reported) Prednisone 5 MG TABLET 1 TAB PO BID RA (Reported) Sildenafil Citrate (Viagra) 100 MG TABLET 1 TAB PO PRN ED (Reported) 1 hour before sexual activity Past History Travel History Traveled to [place] past 21 day No Medical History Blood Transfusion Hx: No Neurological: NONE EENT: NONE Cardiovascular: hypertension Respiratory: NONE Gastrointestinal: NONE Hepatic: NONE Renal: nephrectomy (left) Musculoskeletal: rheumatoid arthritis Psychiatric: NONE Endocrine: NONE Blood Disorders: NONE Cancer(s): RENAL CANCER HIDE AND SKIN COLERER/Reproductive: NONE Other Medical Hx: Lyme disease History of MRSA: No History of VRE: No History of CDIFF: No Isolation History: Standard Surgical History Surgical History: left nephrectomy HERNIA REPAIR X3 Psychosocial History Where Do You Live? Home Services at Home: None Smoking Status: Never Smoked ETOH Use: occasional use Illicit Drug Use: denies illicit drug use Review of Systems Review of Systems All Other Systems: Reviewed and Negative Exam & Diagnostic Data Last 24 Hrs of Vital Signs/I&O Vital Signs Date Time Temp Pulse Resp B/P B/P Pulse O2 O2 Flow FiO2 Mean Ox Delivery Rate 10/22 1439 98.3 107 20 165/94 92 Room Air 10/22 1436 100.2 10/22 0853 0.0 10/22 0833 87 159/89 10/22 0754 4.0 10/22 0643 98.3 79 20 114/80 96 Room Air 10/21 2215 98.6 84 18 112/63 94 Room Air 10/21 2215 94 Room Air 10/21 2113 98.7 90 18 115/79 93 Room Air 10/21 1958 98.9 93 18 114/56 94 Room Air 10/21 1948 Room Air 10/21 1832 102.7 113 15 139/68 93 Room Air Room Air Intake & Output 10/22 1600 10/22 0800 10/22 0000 Intake Total 1380 1000 Output Total Balance 1380 1000 Intake, IV 900 1000 Intake, Oral 480 0 Number 0 0 Bowel Movements Patient 228 lb Weight Weight Bed scale Measurement Method Physical Exam Other Physical Findings: He is awake and alert, disoriented to time, but in no acute distress. T-max 102.7. Skin reveals facial flushing with no rash or evidence of any tick bites. HEENT exam is negative. Neck is supple with no adenopathy. Lungs bibasilar crackles. Heart regular rhythm with no murmur. Abdomen is soft, nontender with positive bowel sounds. Back no CVA tenderness. Extremities no cyanosis, clubbing or edema. Neuro is without focality. Last 24 Hours of Lab Results: Laboratory Tests 10/22 10/22 0700 0423 Chemistry Sodium (137 - 145 mmol/L) 141 Potassium (3.5 - 5.1 mmol/L) 4.1 Chloride (98 - 107 mmol/L) 105 Carbon Dioxide (22 - 30 mmol/L) 26 Anion Gap (5 - 16) 10 BUN (9 - 20 mg/dL) 14 Creatinine (0.7 - 1.2 mg/dL) 0.9 Estimated GFR (>60 ml/min) > 60 BUN/Creatinine Ratio (7 - 25 %) 15.6 Hematology CBC w Diff MAN DIFF ORDERED WBC (4.8 - 10.8 /CUMM) 3.5 L RBC (4.70 - 6.10 /CUMM) 4.53 L Hgb (14.0 - 18.0 G/DL) 13.3 L Hct (42 - 52 %) 38.1 L MCV (80.0 - 94.0 FL) 84.1 MCH (27.0 - 31.0 PG) 29.3 MCHC (33.0 - 37.0 G/DL) 34.8 RDW (11.5 - 14.5 %) 16.5 H Plt Count (130 - 400 /CUMM) 106 L MPV (7.4 - 10.4 FL) 7.8 Gran % (42.2 - 75.2 %) 73.2 Lymphocytes % (20.5 - 51.1 %) 19.2 L Monocytes % (1.7 - 9.3 %) 7.2 Eosinophils % (0 - 5 %) 0.2 Basophils % (0.0 - 2.0 %) 0.2 Absolute Granulocytes (1.4 - 6.5 /CUMM) 2.6 Segmented Neutrophils (42.2 - 75.2 %) 44 Band Neutrophils (0.0 - 5.0 %) 28 H Absolute Lymphocytes (1.2 - 3.4 /CUMM) 0.7 L Lymphocytes (20.5 - 51.1 %) 20 L Monocytes (1.7 - 9.3 %) 7 Absolute Monocytes (0.10 - 0.60 /CUMM) 0.3 Absolute Eosinophils (0.0 - 0.7 /CUMM) 0 Basophils (0.0 - 2.0 %) 1 Absolute Basophils (0.0 - 0.2 /CUMM) 0 Platelet Estimate (ADEQUATE) DECREASED Anisocytosis 1+ Urines Urine Color (YEL,AMB,STR) YEL Urine Clarity (CLEAR) CLEAR Urine pH (5.0 - 8.0) 6.0 Ur Specific [place] (1.001 - 1.035) >= 1.030 Urine Protein (NEG,<30 MG/DL) 30 H Urine Ketones (NEG) NEG Urine Nitrite (NEG) NEG Urine Bilirubin (NEG) NEG Urine Urobilinogen (0.1 - 1.0 EU/dl) 0.2 Ur Leukocyte Esterase (NEG) NEG Ur Microscopic SEDIMENT EXAMINED Urine RBC (0 - 5 /HPF) 1-3 Urine WBC (0 - 2 /HPF) RARE Urine Bacteria (NEG/NONE) FEW H Urine Hemoglobin (NEG) NEG Urine Glucose (N MG/DL) NEG 10/21 Chemistry Sodium (137 - 145 mmol/L) 137 Potassium (3.5 - 5.1 mmol/L) 3.6 Chloride (98 - 107 mmol/L) 102 Carbon Dioxide (22 - 30 mmol/L) 22 Anion Gap (5 - 16) 13 BUN (9 - 20 mg/dL) 16 Creatinine (0.7 - 1.2 mg/dL) 1.0 Estimated GFR (>60 ml/min) > 60 BUN/Creatinine Ratio (7 - 25 %) 16.0 Glucose (65 - 99 mg/dL) 125 H Lactic Acid (0.7 - 2.1 mmol/L) Cancelled Cancelled 1.5 Calcium (8.4 - 10.2 mg/dL) 8.5 Total Bilirubin (0.2 - 1.3 mg/dL) 0.4 AST (17 - 59 U/L) 32 ALT (21 - 72 U/L) 47 Alkaline Phosphatase (< 127 U/L) 47 Troponin I (<0.11 ng/ml) < 0.01 Total Protein (6.3 - 8.2 g/dL) 5.6 L Albumin (3.5 - 5.0 g/dL) 3.5 Globulin (1.9 - 4.2 gm/dL) 2.1 Albumin/Globulin Ratio (1.1 - 2.2 %) 1.7 Serology Lyme Disease Antibody (RATIO) 0.11 10/21 1850 Hematology CBC w Diff MAN DIFF ORDERED WBC (4.8 - 10.8 /CUMM) 5.1 RBC (4.70 - 6.10 /CUMM) 4.86 Hgb (14.0 - 18.0 G/DL) 14.3 Hct (42 - 52 %) 41.0 L MCV (80.0 - 94.0 FL) 84.5 MCH (27.0 - 31.0 PG) 29.4 MCHC (33.0 - 37.0 G/DL) 34.8 RDW (11.5 - 14.5 %) 15.9 H Plt Count (130 - 400 /CUMM) 136 MPV (7.4 - 10.4 FL) 7.6 Gran % (42.2 - 75.2 %) 84.0 H Lymphocytes % (20.5 - 51.1 %) 11.0 L Monocytes % (1.7 - 9.3 %) 4.9 Eosinophils % (0 - 5 %) 0 Basophils % (0.0 - 2.0 %) 0.1 Absolute Granulocytes (1.4 - 6.5 /CUMM) 4.3 Segmented Neutrophils (42.2 - 75.2 %) 71 Band Neutrophils (0.0 - 5.0 %) 14 H Absolute Lymphocytes (1.2 - 3.4 /CUMM) 0.6 L Lymphocytes (20.5 - 51.1 %) 11 L Monocytes (1.7 - 9.3 %) 4 Absolute Monocytes (0.10 - 0.60 /CUMM) 0.2 Absolute Eosinophils (0.0 - 0.7 /CUMM) 0 Absolute Basophils (0.0 - 0.2 /CUMM) 0 Platelet Estimate (ADEQUATE) ADEQUATE Normocytic RBCs VERIFIED Normochromic RBCs VERIFIED Last 24 Hours of Wiliam Results: Blood cultures October 19 negative Blood cultures October 21 negative Urine strep pneumo antigen and Legionella antigen October 22 negative Diagnostic Data Recent Imaging Findings: CT of the chest, abdomen and pelvis revealed bibasilar atelectasis with possible consolidation of the left base, a small area of tree-in-bud opacification in the right upper lobe, multiple calcified granulomata in the right lung and calcifications in the mediastinum, right hilum and spleen consistent with multiple granulomata Assessment/Plan Assessment/Plan Impression: This is a 66-year-old man with a history of rheumatoid arthritis, maintained on prednisone and Plaquenil, and Lyme disease, admitted on October 21 with several days of a recurrent fever and confusion, found to be febrile with bandemia and borderline thrombocytopenia, with his white blood cell count and platelet count further decreased today and with his peripheral smear revealing intracytoplasmic morulae. 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 His confusion, leukopenia and thrombocytopenia are typical for Anaplasma and the intracytoplasmic borderline are nearly pathopneumonic. Treatment is with Doxycycline, which will also cover Lyme disease, which can coinfect approximately 20% of patients with Anaplasma. Other infections carried by the same tick include Borrelia miyamotoi, which is also treated with Doxycycline, [place] virus, for which there is no treatment, and Babesiosis, which would require a different treatment regimen and, if he does not improve on Doxycycline , co-infection with these other organisms will need to be considered. Suggestion: 1. Serum for PCR for Anaplasma 2. Discontinue Ceftriaxone and Azithromycin 3. Begin Doxycycline 100 mg p.o. every 12 hours Consult Acknowledgment - Thank you for your consult request.
[2017-10-22 18:00] VITALS: BP 152/78
[2017-10-22 20:42] VITALS: BP 116/54
[2017-10-22 22:57] VITALS: BP 141/81
[2017-10-23 07:31] VITALS: BP 134/80
--- NOTE | 2017-10-23 08:05 | PN- Housestaff ---
Subjective Follow-up For: Confusion Fever Subjective: Patient seen and examined today. The last time he had a fever was yesterday at 6 PM with a fever of 101.8. The patient has not had any confusion since yesterday but did have one episode of "impulsivity" overnight where he got out of bed and went to the hallway. The patient was set for discharge today on doxycycline for Anaplasma but then spiked fever again to 102.8 so we will keep him another night and reevaluate tomorrow. Patient denies any other complaints. Review of Systems Constitutional: Reports: fever. EENTM: Reports: no symptoms. Cardiovascular: Reports: no symptoms. Respiratory: Reports: no symptoms. Gastrointestinal: Reports: no symptoms. Genitourinary: Reports: no symptoms. Musculoskeletal: Reports: no symptoms. Skin: Reports: no symptoms. Neurological/Psychological: Reports: no symptoms. Hematologic/Endocrine: Reports: no symptoms. Objective Last 24 Hrs of Vital Signs/I&O Vital Signs Date Time Temp Pulse Resp B/P B/P Pulse O2 O2 Flow FiO2 Mean Ox Delivery Rate 10/23 1436 98.6 75 20 128/74 94 Room Air 10/23 1230 100.2 10/23 1130 102.8 10/23 1011 92 128/88 10/23 1005 101.6 10/23 1005 101.6 10/23 0731 99.1 79 20 134/80 93 Room Air 10/22 2257 98.0 86 20 141/81 92 Room Air 10/22 2052 99.7 10/22 2049 99.7 10/22 2042 100.5 86 20 116/54 92 Room Air 10/22 1824 101.8 10/22 1800 101.8 106 22 152/78 89 Room Air 10/22 1700 98.9 Intake & Output 10/23 1600 10/23 0800 10/23 0000 Intake Total 500 100 860 Output Total 400 200 Balance 500 -300 660 Intake, IV 660 Intake, Oral 500 100 200 Number 0 Bowel Movements Output, Urine 400 200 Physical Exam General Appearance: Alert, Oriented X3, Cooperative, No Acute Distress Skin: No Rashes, No Breakdown, No Significant Lesion HEENT: Atraumatic, EOMI, Mucous Membr. moist/pink Cardiovascular: Regular Rate, Normal S1, Normal S2, No Murmurs Lungs: Clear to Auscultation, Normal Air Movement Abdomen: Normal Bowel Sounds, Soft, No Tenderness, No Hepatospenomegaly, No Masses Neurological: Normal Speech Extremities: No Clubbing, No Cyanosis, No Edema, Normal Pulses, No Tenderness/ Swelling Vascular: Normal Pulses, Pulses Symmetrical Sepsis Peripheral Pulse Location: Radial Current Medications: Current Medications Sig/Keri Start time Last Medication Dose Route Stop Time Status Admin Acetaminophen 650 MG ONCE ONE 10/22 1814 DC 10/22 PO 10/22 181 1824 Acetaminophen 650 MG Q8P PRN 10/21 221 AC 10/23 PO 1005 Amitriptyline HCl 50 MG QPM 10/22 2100 AC 10/22 PO 2050 Atenolol 100 MG DAILY 10/22 0900 AC 10/23 PO 1011 Doxycycline Hyclate 100 MG BID 10/22 1645 AC 10/23 PO 1012 Heparin Sodium 5,000 UNIT Q8 10/22 0600 AC 10/23 (Porcine) SC 1547 Hydroxychloroquine 200 MG BID 10/22 1256 AC 10/23 Sulfate PO 1012 Patient Medication 1 ED ONE ONE 10/23 09 DC 10/23 Teaching ED 10/23 0901 1012 Prednisone 5 MG BID 10/22 09 AC 10/23 PO 1011 Sodium Chloride 1,000 ML .Q10H 10/21 2214 DC 10/22 IV 10/22 181 1019 Last 24 Hrs of Lab/Wiliam Results Last 24 Hrs of Labs/Mics: Laboratory Tests 10/23/17 0603: Anion Gap 9, Estimated GFR > 60, BUN/Creatinine Ratio 12.2, CBC w Diff MAN DIFF ORDERED, RBC 4.66 L, MCV 85.5, MCH 29.2, MCHC 34.2, RDW 16.0 H, MPV 8.4, Segmented Neutrophils 39 L, Band Neutrophils 20 H, Lymphocytes 38, Monocytes 3 , Platelet Estimate DECREASED, Normocytic RBCs VERIFIED, Normochromic RBCs VERIFIED 10/23/17 06: Babesia microti DNA PCR Pending 10/22/171816: A.phagocytophil DNA PCR Pending Assessment/Plan Assessment: Mr. Ornelas is a 66yo M w/ PMH of hypertension, renal cancer status post nephrectomy without chemotherapy/radiation, rheumatoid arthritis on prednisone and hydroxychloroquine, gout on allopurinol, that presented to the ER with confusion that began 5 days ago. He states that at the time it began, he was "very tired after doing yard work". Three days ago, the patient was BIBA to the ED for the same complaints, found to have fever to 103.5, tachycardia, and altered mental status. The patient underwent head CT and was found normal. Patient received 2 L fluids, found to have normal physical exam, and was sent home. The patient's stated that he never really got better and his confusion has increased since he was discharged from the ED. During this hospitalization, the patient is waxing and waning clear mentation. On interview today he was alert and oriented 3. She does have rheumatoid arthritis but his only symptom is joint pain and has been so for the entire time he has had the disease. He shouldn't does have a history of Lyme disease 2 years ago, treated successfully. On admission, Vitals: T-max 102.7 -> 98.9, pulse 93, respirations 18, BP 1 1 4/56, 94% on room air -CBC: No leukocytosis, granulocytes 84%, bandemia -BMP: Unremarkable -Chest CT: 1. There is bibasilar atelectasis, with possible consolidation at the left base. There is a small area of tree in bud opacification in the right upper lobe. There are multiple calcified granulomata in the right lung. 2. There are calcifications in the mediastinum and right hilum, as well as within the spleen, consistent with multiple granulomata. 3. The patient is status post left nephrectomy. No masses are demonstrated and there is no lymphadenopathy. There is a nonobstructive right renal calculus. 4. There is a 3.6 cm infrarenal abdominal aortic aneurysm. -EKG: NSR w/o significant ST-T abnormalities. -Interventions in ER: Ceftriaxone/azithromycin 1 Problem list & Assessment: #Sepsis 2/2 presumed community-acquired pneumonia. Patient meets criteria for sepsis. Continues to have waxing and waning confusion during the day. Patient had presence of inclusions characteristic of anaplasma on smear yesterday. Was started on doxy 100mg bid. ceftriaxone and azithro stopped. Patient was supposed to leave today but fever continued. #Multiple granulomatous lesions on chest CT: DDX including sarcoidosis/ rheumatoid arthritis related lung nodules/other unclear etiologies. The patient notes no travel out of the [place] except to the [place] [place] back 30 years ago. He has worked in [employer] for many years and does note that he could've had chemical exposure at work. He denies any weight loss. The patient has a remote history of smoking on and off for 20 years but quit about 20 years ago. #Infrarenal AAA #PMH of hypertension, status post nephrectomy, rheumatoid arthritis Plan noted to be tachypneic, most likely secondary to his infection. the lab reported several neutrophils containing cytoplasmic structures, suggestive of Anaplasma, on his peripheral smear. We have switched ceftriaxone and azithromycin for doxycycline 100 mg twice a day and have put in anaplasma PCR. Also do babesiosis PCR as these are many times concurrent infections. -Check CBC four days after discharge to check platelets with results sent to PCP. hydroxychloroquine 200 mg twice a day as this does not have an effect on the lung. tachycardia had resolved. , outpatient about his lung nodules for possible PFT and further workup. Of note, Dr. Hogue who follows him for rheumatoid arthritis had never seen these nodules, no workup done. -Lyme test negative. Patient did have history of Lyme in the past. DVT prophylaxis Heparin + ALPS Regular Diet Full Code Problem List: 1. Anaplasmosis 2. Lung granuloma Pain Ratin Pain Location: na Pain Goal: Remain pain free Pain Plan: na Tomorrow's Labs & Rationales: cbc
[2017-10-23 08:18] LABS: HEMATOCRIT 39.8 % (42-52); MEAN CORPUSCULAR HGB 29.2 PG (27.0-31.0); MEAN CORPUSCULAR HGB CONC 34.2 G/DL (33.0-37.0); MEAN CORPUSCULAR VOLUME 85.5 FL (80.0-94.0); MEAN PLATELET VOLUME 8.4 FL (7.4-10.4); PLATELET COUNT 87 /CUMM (130-400); RED BLOOD CELL CT 4.66 /CUMM (4.70-6.10); WHITE BLOOD CELL COUNT 4.1 /CUMM (4.8-10.8)
[2017-10-23] MEDS ORDERED: DOXYCYCLINE HY100 M2 PO ×2 (10:04→10:35)
--- NOTE | 2017-10-23 10:12 | Patient Discharge Instructions ---
Discharge Instructions General Discharge Information You were seen/treated for: -BLOOD INFECTION WITH TICK BORNE ANAPLASMOSIS -FINDING OF LUNG GRANULOMATA Special Instructions: 1. Please follow up with your PCP in one week 2. Please follow up with Dr. Robison Surfacing Technician in one week for analysis of lung granulomata 3. Please return to [facility] or to an outside lab for CBC check on Monday 10/23. Bring lab draw request. Results will be sent to your PCP. Diet Continue normal diet: Yes Activity Full Activity/No Limits: Yes Acute Coronary Syndrome Inclusion Criteria At DC or during hospital stay patient has or had the following: ACS DIAGNOSIS No Discharge Core Measures Meds if any: Prescribed or Continued at Discharge Meds if any: NOT Prescribed or Continued at Discharge Congestive Heart Failure Inclusion Criteria At DC or during hospital stay patient has or had the following: CHF DIAGNOSIS No Discharge Core Measures Meds if any: Prescribed or Continued at Discharge Meds if any: NOT Prescribed or Continued at Discharge Cerebrovascular accident Inclusion Criteria At DC or during hospital stay patient has or had the following: CVA/TIA Diagnosis No Discharge Core Measures Meds if any: Prescribed or Continued at Discharge Meds if any: NOT Prescribed or Continued at Discharge Venous thromboembolism Inclusion Criteria VTE Diagnosis No VTE Type NONE VTE Confirmed by (Test) NONE Discharge Core Measures - Per Current guidelines, there needs to be overlap - treatment for the first 5 days of Warfarin therapy. - If discharged on Warfarin prior to 5 days of - overlap therapy, the patient will need to be - assessed for post discharge needs including - *Post discharge parental anticoagulation - *Warfarin and/or parental anticoagulation education - *Follow up date to check INR post discharge At least 5 days overlap therapy as Inpatient No Meds if any: Prescribed or Continued at Discharge Note: Overlap Therapy is Warfarin and Anticoagulant Meds if any: NOT Prescribed or Continued at Discharge
--- NOTE | 2017-10-23 10:45 | PN- Infect Dx ---
Subjective Subjective: T-max 101.8. He feels improved and is more appropriate. He still complains of a headache. Objective Last 24 Hrs of Vital Signs/I&O Vital Signs Date Time Temp Pulse Resp B/P B/P Pulse O2 O2 Flow FiO2 Mean Ox Delivery Rate 10/23 1011 92 128/88 10/23 1005 101.6 10/23 0731 99.1 79 20 134/80 93 Room Air 10/22 2257 98.0 86 20 141/81 92 Room Air 10/22 2052 99.7 10/22 2049 99.7 10/22 204 100.5 86 20 116/54 92 Room Air 10/22 1824 101.8 10/22 1800 101.8 106 22 152/78 89 Room Air 10/22 1700 98.9 10/22 1439 98.3 107 20 165/94 92 Room Air 10/22 1436 100.2 Intake & Output 10/23 1600 10/23 0800 10/23 0000 Intake Total 100 860 Output Total 400 200 Balance -300 660 Intake, IV 660 Intake, Oral 100 200 Number 0 Bowel Movements Output, Urine 400 200 Physical Exam Other Physical Findings: He is awake and alert in no acute distress Lungs bibasilar crackles Heart regular rhythm with no murmur Abdomen is soft, nontender with positive bowel sounds Extremities no cyanosis, clubbing or edema Results Last 24 Hours of Lab Results: Laboratory Tests 10/23 10/22 0603 1817 Chemistry Sodium (137 - 145 mmol/L) 138 Potassium (3.5 - 5.1 mmol/L) 4.2 Chloride (98 - 107 mmol/L) 102 Carbon Dioxide (22 - 30 mmol/L) 28 Anion Gap (5 - 16) 9 BUN (9 - 20 mg/dL) 11 Creatinine (0.7 - 1.2 mg/dL) 0.9 Estimated GFR (>60 ml/min) > 60 BUN/Creatinine Ratio (7 - 25 %) 12.2 Hematology CBC w Diff MAN DIFF ORDERED WBC (4.8 - 10.8 /CUMM) 4.1 L RBC (4.70 - 6.10 /CUMM) 4.66 L Hgb (14.0 - 18.0 G/DL) 13.6 L Hct (42 - 52 %) 39.8 L MCV (80.0 - 94.0 FL) 85.5 MCH (27.0 - 31.0 PG) 29.2 MCHC (33.0 - 37.0 G/DL) 34.2 RDW (11.5 - 14.5 %) 16.0 H Plt Count (130 - 400 /CUMM) 87 L MPV (7.4 - 10.4 FL) 8.4 Segmented Neutrophils (42.2 - 75.2 %) 39 L Band Neutrophils (0.0 - 5.0 %) 20 H Lymphocytes (20.5 - 51.1 %) 38 Monocytes (1.7 - 9.3 %) 3 Platelet Estimate (ADEQUATE) DECREASED Normocytic RBCs VERIFIED Normochromic RBCs VERIFIED Serology A.phagocytophil DNA PCR Pending Last 24 Hours of Wiliam Results: Blood cultures October 19 negative Blood cultures October 21 negative Assessment/Plan ID Impression: Improved, though remains febrile, on Doxycycline, Day 1 of treatment for presumed Anaplasmosis, with intracytoplasmic morulae seen on his peripheral smear. His white blood cell count is increased today, with persistent, though decreased bands, but his platelet count continues to decrease. Co-infection with Lyme as well as Babesia could be considered and, if his fevers or thrombocytopenia persist, further evaluation for Babesiosis should be pursued. Suggestion: 1. Follow-up Anaplasma PCR 2. Would send a PCR for Babesia if his fevers or thrombocytopenia persist 3. Continue Doxycycline to complete a 10 day course of treatment
--- NOTE | 2017-10-23 11:02 | PN- Att Addend ---
Attending Addendum Attending Brief Note Patient seen and examined. Plan of care discussed with the medical team and the patient. Available lab work and radiology test reports were reviewed. He feels much better and is no confusion reported by was at bedside. Patient denies any fevers overnight and feels well and wants to go home today. Exam: General: Patient awake alert oriented without any distress CVS: S1 plus S2 without any murmur or gallops Chest: Few scattered crepitation without any wheeze. There is no respiratory distress. Abdomen: Soft non-tender, bowel sound present, no guarding or rebound [employer]: Awake alert oriented without any focal neuro deficit and follows commands appropriately Extremities: No edema; no clubbing or cyanosis noted Problem list & Assessment: * Anaplasmosis * Multiple granulomatous lesions on chest CT: DDX including sarcoidosis/ rheumatoid arthritis related lung nodules/other etiologies fungal infection such as histoplasmosis * Infrarenal AAA * PMH of hypertension, * status post nephrectomy, * rheumatoid arthritis * Thrombocytopenia and neutropenia likely due to anaplasmosis- expected improved with doxycycline Plan * Continue doxycycline to complete 10 day course * Lung nodules can be worked up as outpatient. Patient followed Dr. Robison in [place] * Patient clinically stable for discharge Current Medications Sig/Keri Start time Last Medication Dose Route Stop Time Status Admin Acetaminophen 650 MG ONCE ONE 10/22 1815 DC 10/22 PO 10/22 181 1824 Acetaminophen 650 MG Q8P PRN 10/21 2215 AC 10/23 PO 1005 Amitriptyline HCl 50 MG QPM 10/22 2100 AC 10/22 PO 2050 Atenolol 100 MG DAILY 10/22 0900 AC 10/23 PO 1011 Azithromycin 500 MG 10/22 CAN Sodium Chloride 250 ML IV Ceftriaxone Sodium 1,000 MG 10/22 CAN IV Doxycycline Hyclate 100 MG BID 10/22 2100 DC PO Doxycycline Hyclate 100 MG BID 10/22 1645 AC 10/23 PO 1012 Heparin Sodium 5,000 UNIT Q8 10/22 0600 AC 10/23 (Porcine) SC 0602 Hydroxychloroquine 200 MG BID 10/22 1256 AC 10/23 Sulfate PO 1012 Patient Medication 1 ED ONE ONE 10/23 0900 DC 10/23 Teaching ED 10/23 0901 1012 Patient Medication 1 ED ONE ONE 10/22 1545 DC Teaching ED 10/22 1546 Prednisone 5 MG BID 10/22 0900 AC 10/23 PO 1011 Sodium Chloride 1,000 ML .Q10H 10/21 2215 DC 10/22 IV 10/22 1814 1019 Laboratory Tests 10/23/17 0603: Anion Gap 9, Estimated GFR > 60, BUN/Creatinine Ratio 12.2, CBC w Diff MAN DIFF ORDERED, RBC 4.66 L, MCV 85.5, MCH 29.2, MCHC 34.2, RDW 16.0 H, MPV 8.4, Segmented Neutrophils 39 L, Band Neutrophils 20 H, Lymphocytes 38, Monocytes 3 , Platelet Estimate DECREASED, Normocytic RBCs VERIFIED, Normochromic RBCs VERIFIED 10/22/17 1817: A.phagocytophil DNA PCR Pending 10/22/17 0700: Anion Gap 10, Estimated GFR > 60, BUN/Creatinine Ratio 15.6, CBC w Diff MAN DIFF ORDERED, RBC 4.53 L, MCV 84.1, MCH 29.3, MCHC 34.8, RDW 16.5 H, MPV 7.8, Gran % 73.2, Lymphocytes % 19.2 L, Monocytes % 7.2, Eosinophils % 0.2, Basophils % 0.2, Absolute Granulocytes 2.6, Segmented Neutrophils 44, Band Neutrophils 28 H , Absolute Lymphocytes 0.7 L, Lymphocytes 20 L, Monocytes 7, Absolute Monocytes 0.3, Absolute Eosinophils 0, Basophils 1, Absolute Basophils 0, Platelet Estimate DECREASED, Anisocytosis 1+ 10/22/17 0423: Urine Color YEL, Urine Clarity CLEAR, Urine pH 6.0, Ur Specific Tyro >= 1.030 , Urine Protein 30 H, Urine Ketones NEG, Urine Nitrite NEG, Urine Bilirubin NEG , Urine Urobilinogen 0.2, Ur Leukocyte Esterase NEG, Ur Microscopic SEDIMENT EXAMINED, Urine RBC 1-3, Urine WBC RARE, Urine Bacteria FEW H, Urine Hemoglobin NEG, Urine Glucose NEG 10/21/17 2214: Lactic Acid Cancelled 10/21/17 2149: Lactic Acid Cancelled 10/21/17 1937: Lactic Acid 1.5 10/21/17 1852: Anion Gap 13, Estimated GFR > 60, BUN/Creatinine Ratio 16.0, Glucose 125 H, Calcium 8.5, Total Bilirubin 0.4, AST 32, ALT 47, Alkaline Phosphatase 47, Troponin I < 0.01, Total Protein 5.6 L, Albumin 3.5, Globulin 2.1, Albumin/ Globulin Ratio 1.7, Lyme Disease Antibody 0.11 10/21/171850: CBC w Diff MAN DIFF ORDERED, RBC 4.86, MCV 84.5, MCH 29.4, MCHC 34.8, RDW 15.9 H, MPV 7.6, Gran % 84.0 H, Lymphocytes % 11.0 L, Monocytes % 4.9, Eosinophils % 0, Basophils % 0.1, Absolute Granulocytes 4.3, Segmented Neutrophils 71, Band Neutrophils 14 H, Absolute Lymphocytes 0.6 L, Lymphocytes 11 L, Monocytes 4, Absolute Monocytes 0.2, Absolute Eosinophils 0, Absolute Basophils 0, Platelet Estimate ADEQUATE, Normocytic RBCs VERIFIED, Normochromic RBCs VERIFIED Microbiology 10/22 422 URINE ROUT: Legionella Antigen - COMP 10/22 422 URINE ROUT: Streptococcus pneumoniae Antigen (M - COMP 10/21 1950 BLOOD: Blood Culture - RES 10/21 1936 BLOOD: Blood Culture - RES Vital Signs Date Time Temp Pulse Resp B/P B/P Pulse O2 O2 Flow FiO2 Mean Ox Delivery Rate 10/23 1011 92 128/88 10/23 1005 101.6 10/23 0731 99.1 79 20 134/80 93 Room Air 10/22 2257 98.0 86 20 141/81 92 Room Air 10/22 2052 99.7 10/22 2049 99.7 10/22 204 100.5 86 20 116/54 92 Room Air 10/22 1824 101.8 10/22 1800 101.8 106 22 152/78 89 Room Air 10/22 1700 98.9 10/22 1439 98.3 107 20 165/94 92 Room Air 10/22 1436 100.2 Intake & Output 10/23 1600 10/23 0800 10/23 0000 Intake Total 100 860 Output Total 400 200 Balance -300 660 Intake, IV 660 Intake, Oral 100 200 Number 0 Bowel Movements Output, Urine 400 200 Total time spent in preparation for discharge plan, patient education, and CMR preparation was 35 minutes.
[2017-10-23 14:36] VITALS: BP 128/74
[2017-10-23 21:06] VITALS: BP 146/80
[2017-10-24 06:13] VITALS: BP 130/78
--- NOTE | 2017-10-24 07:04 | PN- Housestaff ---
Subjective Follow-up For: Confusion Fever Subjective: Patient seen and examined. Resting comfortably. No overnight acute events. Reports mild cough at baseline. MAXIMUM TEMPERATURE 100.3 Review of Systems Constitutional: Reports: see HPI. Objective Last 24 Hrs of Vital Signs/I&O Vital Signs Date Time Temp Pulse Resp B/P B/P Pulse O2 O2 Flow FiO2 Mean Ox Delivery Rate 10/24 0613 98.4 75 20 130/78 92 Room Air 10/24 0006 98.9 10/23 2200 98.6 10/23 210 100.3 10/23 210 100.3 78 20 146/80 94 Room Air 10/23 1930 99.0 10/23 1900 98.8 10/23 1436 98.6 75 20 128/74 94 Room Air 10/23 1230 100.2 10/23 1130 102.8 10/23 1011 92 128/88 10/23 1005 101.6 10/23 1005 101.6 10/23 0731 99.1 79 20 134/80 93 Room Air Intake & Output 10/24 0800 10/24 0000 10/23 1600 Intake Total 240 500 Output Total 400 Balance -160 500 Intake, Oral 240 500 Output, Urine 400 Physical Exam General Appearance: Alert, Oriented X3 Cardiovascular: Normal S1, Normal S2 Lungs: Clear to Auscultation, Normal Air Movement, BIBASILAR CRACKELS Abdomen: Soft, No Tenderness, No Hepatospenomegaly Current Medications: Current Medications Sig/Keri Start time Last Medication Dose Route Stop Time Status Admin Acetaminophen 650 MG .STK-MED ONE 10/23 2102 DC PO 10/24 2103 Acetaminophen 650 MG .STK-MED ONE 10/23 0952 DC PO 10/23 0953 Acetaminophen 650 MG Q8P PRN 10/21 2215 AC 10/23 PO 210 Amitriptyline HCl 50 MG QPM 10/22 2100 AC 10/23 PO 2030 Atenolol 100 MG DAILY 10/22 09 AC 10/23 PO 1011 Doxycycline Hyclate 100 MG BID 10/22 1645 AC 10/23 PO 2030 Heparin Sodium 5,000 UNIT Q8 10/22 06 AC 10/24 (Porcine) SC 0520 Hydroxychloroquine 200 MG BID 10/22 1256 AC 10/23 Sulfate PO 2030 Patient Medication 1 ED ONE ONE 10/23 09 DC 10/23 Teaching ED 10/23 0901 1012 Prednisone 5 MG BID 10/22 0900 AC 10/23 PO 2030 Assessment/Plan Assessment: Mr. Ornelas is a 66yo M w/ PMH of hypertension, renal cancer status post nephrectomy without chemotherapy/radiation, rheumatoid arthritis on prednisone and hydroxychloroquine, gout on allopurinol, that presented to the ER with confusion that began 5 days ago The patient is currently in general medicine floor and was being treated and evaluated for following conditions #Sepsis 2/2 presumed community-acquired pneumonia. Patient meets criteria for sepsis. Continues to have waxing and waning confusion during the day. Patient had presence of inclusions characteristic of anaplasma on smear yesterday. Was started on doxy 100mg bid. ceftriaxone and azithro stopped. #Multiple granulomatous lesions on chest CT: DDX including sarcoidosis/ rheumatoid arthritis related lung nodules/other unclear etiologies. The patient notes no travel out of the [place] except to the [place] [place] the [place] for [place] back 30 years ago. He has worked in [id number] for many years and does note that he could've had chemical exposure at work. He denies any weight loss. The patient has a remote history of smoking on and off for 20 years but quit about 20 years ago. #Infrarenal AAA #PMH of hypertension, status post nephrectomy, rheumatoid arthritis Plan noted to be tachypneic, most likely secondary to his infection. the lab reported several neutrophils containing cytoplasmic structures, suggestive of Anaplasma, on his peripheral smear. We have switched ceftriaxone and azithromycin for doxycycline 100 mg twice a day and have put in anaplasma PCR. Also do babesiosis PCR as as these are many times concurrent infections. -Check CBC four days after discharge to check platelets with results sent to PCP. hydroxychloroquine 200 mg twice a day as this does not have an effect on the lung. tachycardia had resolved. , outpatient about his lung nodules for possible PFT and further workup. Of note, Dr. Hogue who follows him for rheumatoid arthritis had never seen these nodules, no workup done. -Lyme test negative. Patient did have history of Lyme in the past. DVT prophylaxis Heparin + ALPS /Regular Diet/ Full Code Problem List: 1. Pneumonia Pain Ratin Pain Location: N/A Pain Goal: Pain 4 or less Pain Plan: PRN Tomorrow's Labs & Rationales: NONE ANTICPATED D/C
[2017-10-24 08:31] LABS: ABSOLUTE BASOPHIL COUNT 0 /CUMM (0.0-0.2); ABSOLUTE EOSINOPHIL COUNT 0 /CUMM (0.0-0.7); ABSOLUTE GRANULOCYTE CT 3.5 /CUMM (1.4-6.5); ABSOLUTE LYMPH COUNT 1.9 /CUMM (1.2-3.4); ABSOLUTE MONOCYTE COUNT 0.5 /CUMM (0.10-0.60); BASOPHIL % 0.3 % (0.0-2.0); EOSINOPHIL % 0.1 % (0-5); GRANULOCYTE % 59.3 % (42.2-75.2); HEMATOCRIT 38.7 % (42-52); MEAN CORPUSCULAR HGB 29.2 PG (27.0-31.0); MEAN CORPUSCULAR HGB CONC 34.3 G/DL (33.0-37.0); MEAN CORPUSCULAR VOLUME 85.3 FL (80.0-94.0); MEAN PLATELET VOLUME 8.5 FL (7.4-10.4); PLATELET COUNT 94 /CUMM (130-400); RBC DISTRIBUTION WIDTH 16.2 % (11.5-14.5); RED BLOOD CELL CT 4.54 /CUMM (4.70-6.10); WHITE BLOOD CELL COUNT 5.9 /CUMM (4.8-10.8)
[2017-10-24 08:58] VITALS: BP 148/80
[2017-10-24] MEDS ORDERED: DOXYCYCLINE HY100 M2 PO (10:25)
--- NOTE | 2017-10-24 12:15 | PN- Att Addend ---
Attending Addendum Attending Brief Note Patient seen and examined. Plan of care discussed with the medical team and the patient. Available lab work and radiology test reports were reviewed. He feels much better and wants to go home. He denies any recent fever or chills. This morning temperature is 98.4. Exam: General: Patient awake alert oriented without any distress CVS: S1 plus S2 without any murmur or gallops Chest: Few scattered crepitation without any wheeze. There is no respiratory distress. 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 without any focal neuro deficit and follows commands appropriately Extremities: No edema; no clubbing or cyanosis noted Problem list & Assessment: * Anaplasmosis * Multiple granulomatous lesions on chest CT: DDX including sarcoidosis/ rheumatoid arthritis related lung nodules/other etiologies fungal infection such as histoplasmosis * Infrarenal AAA * PMH of hypertension, * status post nephrectomy, * rheumatoid arthritis * Thrombocytopenia and neutropenia likely due to anaplasmosis- expected improved with doxycycline Plan * Continue doxycycline to complete 10 day course * Lung nodules can be worked up as outpatient. Patient followed Dr. Robison in [place] * Patient clinically stable for discharge * Patient was advised to avoid sun exposure while is on doxycycline. She was also told to return to ED if he develops a persistent fever difficulty breathing Current Medications Sig/Keri Start time Last Medication Dose Route Stop Time Status Admin Acetaminophen 650 MG .STK-MED ONE 10/23 2102 DC PO 10/24 2103 Acetaminophen 650 MG Q8P PRN 10/21 2215 DCD 10/23 PO 2106 Amitriptyline HCl 50 MG QPM 10/22 2100 DCD 10/23 PO 2030 Atenolol 100 MG DAILY 10/22 0900 DCD 10/24 PO 0858 Doxycycline Hyclate 100 MG BID 10/22 1645 DCD 10/24 PO 0858 Heparin Sodium 5,000 UNIT Q8 10/22 06 DCD 10/24 (Porcine) SC 0520 Hydroxychloroquine 200 MG BID 10/22 1256 DCD 10/24 Sulfate PO 0857 Prednisone 5 MG BID 10/22 0900 DCD 10/24 PO 0857 Laboratory Tests 10/24/17 0601: CBC w Diff NO MAN DIFF REQ, RBC 4.54 L, MCV 85.3, MCH 29.2, MCHC 34.3, RDW 16.2 H, MPV 8.5, Gran % 59.3, Lymphocytes % 32.0, Monocytes % 8.3, Eosinophils % 0.1 , Basophils % 0.3, Absolute Granulocytes 3.5, Absolute Lymphocytes 1.9, Absolute Monocytes 0.5, Absolute Eosinophils 0, Absolute Basophils 0 10/23/17 0603: Anion Gap 9, Estimated GFR > 60, BUN/Creatinine Ratio 12.2, CBC w Diff MAN DIFF ORDERED, RBC 4.66 L, MCV 85.5, MCH 29.2, MCHC 34.2, RDW 16.0 H, MPV 8.4, Segmented Neutrophils 39 L, Band Neutrophils 20 H, Lymphocytes 38, Monocytes 3 , Platelet Estimate DECREASED, Normocytic RBCs VERIFIED, Normochromic RBCs VERIFIED 10/23/17 0600: Babesia microti DNA PCR Pending 10/22/17 1817: A.phagocytophil DNA PCR Pending 10/22/17 0700: Anion Gap 10, Estimated GFR > 60, BUN/Creatinine Ratio 15.6, CBC w Diff MAN DIFF ORDERED, RBC 4.53 L, MCV 84.1, MCH 29.3, MCHC 34.8, RDW 16.5 H, MPV 7.8, Gran % 73.2, Lymphocytes % 19.2 L, Monocytes % 7.2, Eosinophils % 0.2, Basophils % 0.2, Absolute Granulocytes 2.6, Segmented Neutrophils 44, Band Neutrophils 28 H , Absolute Lymphocytes 0.7 L, Lymphocytes 20 L, Monocytes 7, Absolute Monocytes 0.3, Absolute Eosinophils 0, Basophils 1, Absolute Basophils 0, Platelet Estimate DECREASED, Anisocytosis 1+ 10/22/17 0423: Urine Color YEL, Urine Clarity CLEAR, Urine pH 6.0, Ur Specific Stanton >= 1.030 , Urine Protein 30 H, Urine Ketones NEG, Urine Nitrite NEG, Urine Bilirubin NEG , Urine Urobilinogen 0.2, Ur Leukocyte Esterase NEG, Ur Microscopic SEDIMENT EXAMINED, Urine RBC 1-3, Urine WBC RARE, Urine Bacteria FEW H, Urine Hemoglobin NEG, Urine Glucose NEG 10/21/17 2214: Lactic Acid Cancelled 10/21/17 2149: Lactic Acid Cancelled 10/21/17 1937: Lactic Acid 1.5 10/21/17 1852: Anion Gap 13, Estimated GFR > 60, BUN/Creatinine Ratio 16.0, Glucose 125 H, Calcium 8.5, Total Bilirubin 0.4, AST 32, ALT 47, Alkaline Phosphatase 47, Troponin I < 0.01, Total Protein 5.6 L, Albumin 3.5, Globulin 2.1, Albumin/ Globulin Ratio 1.7, Lyme Disease Antibody 0.11 10/21/171850: CBC w Diff MAN DIFF ORDERED, RBC 4.86, MCV 84.5, MCH 29.4, MCHC 34.8, RDW 15.9 H, MPV 7.6, Gran % 84.0 H, Lymphocytes % 11.0 L, Monocytes % 4.9, Eosinophils % 0, Basophils % 0.1, Absolute Granulocytes 4.3, Segmented Neutrophils 71, Band Neutrophils 14 H, Absolute Lymphocytes 0.6 L, Lymphocytes 11 L, Monocytes 4, Absolute Monocytes 0.2, Absolute Eosinophils 0, Absolute Basophils 0, Platelet Estimate ADEQUATE, Normocytic RBCs VERIFIED, Normochromic RBCs VERIFIED Microbiology 10/22 422 URINE ROUT: Legionella Antigen - COMP 10/22 422 URINE ROUT: Streptococcus pneumoniae Antigen (M - COMP 10/21 1950 BLOOD: Blood Culture - RES 10/21 1936 BLOOD: Blood Culture - RES Vital Signs Date Time Temp Pulse Resp B/P B/P Pulse O2 O2 Flow FiO2 Mean Ox Delivery Rate 10/24 0858 65 148/80 10/24 0613 98.4 75 20 130/78 92 Room Air 10/24 0006 98.9 10/23 2200 98.6 10/23 2106 100.3 10/23 2106 100.3 78 20 146/80 94 Room Air 10/23 1930 99.0 10/23 1900 98.8 10/23 1436 98.6 75 20 128/74 94 Room Air 10/23 1230 100.2 Intake & Output 10/24 1600 10/24 0800 10/24 0000 Intake Total 200 240 Output Total 400 Balance 200 -160 Intake, Oral 200 240 Output, Urine 400 Total time spent in preparation for discharge plan, patient education, and CMR preparation was 35 minutes.
== END 2017-10-24 10:45 | DRG 869 ==
LOC: ERH 18:28 → 2NB 20:04 → ERHI 20:04 → ENRESERV 21:05 → ENTRNSPT 21:39 → EDTRNSPTSTS 21:44 → 2NB 21:57 → CMPTRNSPT 22:07 → 2NB 10-22 23:26 → ENPENDDIS 10-23 10:44 → 2NB 10-24 10:45
PROVIDERS: Internal Medicine Endocrinology, Diabetes & Metabolism; Physician Assistant Medical; Student in an Organized Health Care Education/Training Program
DX: A77.49 Other ehrlichiosis (principal); D69.59 Other secondary thrombocytopenia; J84.10 Pulmonary fibrosis, unspecified; D70.9 Neutropenia, unspecified; Z90.6 Acquired absence of other parts of urinary tract; I10 Essential (primary) hypertension; M06.9 Rheumatoid arthritis, unspecified; I71.4 Abdominal aortic aneurysm, without rupture; Z85.528 Personal history of other malignant neoplasm of kidney
CPT/HCPCS: 2NSBP; 86618; 87798; 36415; 74176; 81001; 82436; 87040; 87449; 87450; 93005; 93010; 96361; 96374; J0456; J0696; J1644; J1885; J7040; J7512